=== PATIENT | female | born 1985 | race Hispanic/Latino ===

== ENCOUNTER 2021-06-11 10:33 | Outpatient (CLI) | payer BC, SELFPAY ==
[2021-06-11 10:52] LABS: Hematocrit 34.6 % (37.0-47.0); Mean Corpuscular HGB Conc 34.7 g/dl (32-36); Mean Corpuscular Volume 95.1 fl (80-100); Mean Platelet Volume 9.9 fl (7.4-10.4); Platelet Count Result 217 k/mm3 (150-375); Red Blood Count 3.64 M/mm3 (4.2-5.4); Red Cell Distribution Width 13.3 % (11.5-14.5); White Blood Count 7.2 K/mm3 (4.5-10.0)
[2021-06-13 07:40] LABS: Rapid Plasma Reagin Non-Reactive (NonReactive)
== END 2021-06-11 10:34 | disposition home or self-care (01) ==
PROVIDERS: PCP Emergency Medicine; Visit Provider Obstetrics & Gynecology
DX: Z34.93 Encounter for supervision of normal pregnancy, unspecified, third trimester (principal); Z3A.00 Weeks of gestation of pregnancy not specified
CPT/HCPCS: 36415; 85027; 86592; 86850; 86900; 86901

== ENCOUNTER 2021-06-13 11:35 | Inpatient (IN) | payer BC, SELFPAY ==
[2021-06-13] VITALS (44 sets, daily range): BP systolic 110–131; BP diastolic 52–69; PULSE 61–86; RESP 14–18; TEMP 36.3–37.3; O2SAT 98–100; BMI 29.2
--- OUTSIDE RECORDS SUMMARY | 2021-06-13 11:38 | XMS_ITS | Encounter Summary ---
:1985 Author Reason for Visit OB visit Assessment and Plan 1. Advanced maternal age 2. Deliveries by Discussion Note: None recorded.Patient educational handouts: No information available. Plan of Care Reminders Provider Appointments Surg Post 06/22/2021 Anca Escoto here Op 9:45AM MD [facility] Lab None ? ? recorded. Referral None ? ? recorded. Procedures None ? ? recorded. Surgeries None ? ? recorded. Imaging None ? ? recorded. Medications Name Start Date ? ? folic acid ? ondansetron 4 mg disintegrating tablet ? DISSOLVE 1 TABLET IN MOUTH THREE TIMES DAILY NEEDE D ? Medications Administered None recorded. Vitals Height Weight BMI Blood Pressure 5 ft 6 in 171 lbs 27.6 kg/m2 107/68 mm[Hg] Results Lab Results None recorded. Allergies Code Code System Name Reaction Severity Onset NKDA ? ? ? Problems Name Status Onset Date Source ? Active 12/21/2020 ? Deliveries by Active ? ? Advanced Maternal Age Active ? ? Procedures
--- OUTSIDE RECORDS SUMMARY | 2021-06-13 11:38 | XMS_ITS | Encounter Summary ---
:1985 Author Reason for Visit OB visit Assessment and Plan 1. Deliveries by 2. Advanced maternal age Discussion Note: None recorded.Patient educational handouts: No [...] BMI Blood Pressure 5 ft 6 in 177 lbs 28.6 kg/m2 109/77 mm[Hg] Results Lab Results None recorded. Allergies Code Code System Name Reaction Severity Onset NKDA ? ? ? Problems Name Status Onset Date Source ? Active 12/21/2020 ? Deliveries by Active ? ? Advanced Maternal Age Active ? ? Procedures
--- OUTSIDE RECORDS SUMMARY | 2021-06-13 11:38 | XMS_ITS | Encounter Summary ---
:1985 Author Reason for Visit OB visit Assessment and Plan Assessment Note Patient is ___weeks . Discu ssed plan. 1. Advanced maternal age Discussion Note: None recorded.Patient educational handouts: No information available. Plan of Care Reminders Provider Appointments Surg Post 06/22/2021 Anca gan Op 9:45AM MD [facility] Lab None ? [...] BMI Blood Pressure 5 ft 6 in 173 lbs 27.9 kg/m2 115/72 mm[Hg] Results Lab Results None recorded. Allergies Code Code System Name Reaction Severity Onset NKDA ? ? ? Problems Name Status Onset Date Source ? Active 12/21/2020 ? Deliveries by Active ? ?
--- OUTSIDE RECORDS SUMMARY | 2021-06-13 11:38 | XMS_ITS | Encounter Summary ---
:1985 Author Organization Department [facility] Address [address] [place] [address] Support Name Relationship Address Phone UNKNOWN, UNKNOWN Unavailable Unavailable Unavailable Selected Encounter This section includes the information on record at [place] for the Encounter. Date/Time Encounter Type Encounter Description Reason Provider Source Jul 06, 2020 02:12 Outpatient Encounter GENERAL INTERNAL MEDICINE [facility] Encounter Template Text not used by [facility] Encounter Notes: All associated encounter notes This section contains the clinical notes associated to the Encounter. Date/Time Encounter Note(s) Provider Source Jul 06, 2020 02:12 PM ADMINISTRATIVE NOTE: AMANDA HOWE [facility] LOCAL TITLE: ADMINISTRATIVE [facility] STANDARD TITLE: ADMINISTRATIVE NOTE DATE OF NOTE: JUL 06, 2020@14:12 ENTRY DATE: JUL 06, 2020@14:12:54 AUTHOR: AMANDA HOWE EXP COSIGNER: URGENCY: STATUS: COMPLETED CALLED MEI PETERSON TO SCHEDULE COVID VACCINE NO ANSWER LEFT MESSAGE TO CALL [phone] IF STILL INTERESTED IN VACCINE. /isabel/ AMANDA HOWE [employer]UC[employer] S[employer] LANGUAGE INTERPRETER Signed: 07/06/2020 14:13
--- OUTSIDE RECORDS SUMMARY | 2021-06-13 11:38 | XMS_ITS ---
:1985 Author Care Team Providers Name Role Phone Unassigned Primary Care Provider Unavailable Allergies Code Code System Name Reaction Severity Status Onset NKDA ? Medications Name Status Start Date Stop Date ? ? folic acid Active ? Not available iron Active ? Not available Active ? Not available Problems No Known Problems Procedures Date Name Performed by ? ? Section Information not avai lable ? Section Information not avai lable Results Lab Results None recorded. Past Encounters None recorded. Social History Tobacco Smoking Status Never Smoker Vaccine List Vaccine Type COVID-19, mRNA, LNP-S, PF, 30 mcg/0.3 mL dose ([employer]) 07/12/2020?0.3 mL 08/03/2020?0.3 mL influenza, injectable, quadrivalent 04/16/2018 Tdap 04/16/2018?0.5 mL Plan of Care Reminders Provider Appointments None ? ? recorded. Lab None ? ? recorded. Referral None ? ? recorded. Procedures None ? ?
--- OUTSIDE RECORDS SUMMARY | 2021-06-13 11:38 | XMS_ITS | Encounter Summary ---
[...] ft 6 in 177 lbs 28.6 kg/m2 113/70 mm[Hg] Results Lab Results None recorded. Allergies Code Code System Name Reaction Severity Onset NKDA ? ? ? Problems Name Status Onset Date Source ? Active 12/21/2020 ? Deliveries by Active ? ? Advanced Maternal Age Active ? ? Procedures
--- OUTSIDE RECORDS SUMMARY | 2021-06-13 11:38 | XMS_ITS | Encounter Summary ---
:1985 Author Reason for Visit OB visit Assessment and Plan 1. Deliveries by ? section (SURG) 2. Advanced maternal age 3. Sterilization requested ? salpingectomy (SURG) Discussion Note: None recorded.Patient educational handouts: No information available. Plan of Care Reminders Provider Appointments Surg Post Op Am y Ping 06/22/2021 MD [facility] 9:45AM Lab None recorded. ? ? Referral None recorded. ? ? Procedures None recorded. ? ? Surgeries Section Bill Surgery (SURG) 04/27/2021 [facility] ? Salpingectomy And erson Surgery (SURG) 04/27/2021 [facility] Imaging None recorded. ? ? Medications Name Start Date ? ? folic acid ? ondansetron 4 mg disintegrating tablet ? DISSOLVE 1 TABLET IN MOUTH THREE TIMES DAILY NEEDE D ? Medications Administered None recorded. Vitals Height Weight BMI Blood Pressure 5 ft 6 in 174 lbs 28.1 kg/m2 110/67 mm[Hg] Results Lab Results None record
--- OUTSIDE RECORDS SUMMARY | 2021-06-13 11:38 | XMS_ITS | Continuity of Care Document ---
:1985 Author Organization [facility] Care Team Providers Name Role Phone [facility] Unavailable Unavailable Encounters Combined list of: 1) Encounters from [facility] of [facility] Affairs facilities going back up to thelast 18 months, not all [facility] inpatient encounters are included; 2) Encounters from the Department of Defense facilities going backup to 280 months. Location Location Encounter Encounter Reason Attending ADM DC Stat us Disposition Source Details Type Number For Provider Date Date Visit Outpatient [id number] 07/06 [facility] Encounter [id number] [facility] Owens
--- OUTSIDE RECORDS SUMMARY | 2021-06-13 11:38 | XMS_ITS | Encounter Summary ---
:1985 Author Reason for Visit OB visit Assessment and Plan 1. Routine care 2. Deliveries by 3. Advanced maternal age Discussion Note: None recorded.Patient [...] BMI Blood Pressure 5 ft 6 in 181 lbs 29.2 kg/m2 116/72 mm[Hg] Results Lab Results None recorded. Allergies Code Code System Name Reaction Severity Onset NKDA ? ? ? Problems Name Status Onset Date Source ? Active 12/21/2020 ? Deliveries by Active ? ? Advanced M
--- OUTSIDE RECORDS SUMMARY | 2021-06-13 11:38 | XMS_ITS | Encounter Summary ---
:1985 Author Reason for Visit None recorded. Assessment and Plan 1. Advanced maternal age ? US, obstetric, follow-up Discussion Note: None recorded.Patient educational handouts: No information available. Plan of Care Reminders Provider Appointments Surg Post 06/22/2021 [place] 9:45AM Lab None ? ? recorded. Referral None ? ? recorded. Procedures None ? ? recorded. Surgeries None ? ? recorded. Imaging US, 04/06/2021 [place] [facility], Follow-up Medications Name Start Date ? ? folic acid ? ondansetron 4 mg disintegrating tablet ? DISSOLVE 1 TABLET IN MOUTH THREE TIMES DAILY NEEDE D ? Medications Administered None recorded. Vitals None recorded. Results Lab Results None recorded. Allergies Code Code System Name Reaction Severity Onset NKDA ? ? ? Problems Name Status Onset Date Source ? Active 12/21/2020 ? Deliveries by Active ? ? Advanced Maternal Age Active ? ? Procedures Date Name Performed by ?
--- NOTE | 2021-06-13 11:54 | LDADM ---
This patient, Erica Ragland, was admitted to Labor/Delivery/Recovery 120 on 06/13/21 at 11:35. Plans for labor, pain management and were discussed with patient. Patient/family oriented to hospital policies and general routines including ID bracelet, bed and alarms, visiting hours, pain management, procedures, bathroom and other care routines, personal items, smoking policy, room service/diet and guest tray routines, infant security routines, and visiting hours. Patient/Family are encouraged to report perceived risks to care and to ask questions if they do not understand what they are told or what they should do. See OBIX for further documentation.
[2021-06-13] MEDS: LACTATED RINGERS 1,000 ML 125 ML IV CONT ×2 (12:15→13:35)
--- NOTE | 2021-06-13 13:08 | WPDANESEPPF ---
Anes - Initial Pre Proc Eval Procedure: Operation Date: 06/13/21 13:30 Proposed Procedures p Repeat Section- Anca Castle MD Date/Time: 06/13/21 13:08 Surgeon: Anca Castle MD Pre Op Diagnosis: Repeat C Section Patient Data Age: 36 Gender: F Height: 1.68 m Weight: 82 kg Last Vital Signs Temp 36.7 C 06/13/21 12:19 Pulse 78 06/13/21 12:18 Resp 16 06/13/21 12:19 BP 110/62 06/13/21 12:18 Allergies Allergy/AdvReac Type Severity Reaction Status Date / Time No Known Allergies Allergy Unverified 10/29/19 13:28 Home Medications Medication Instructions Recorded Confirmed Type PNV cmb#95-ferrous fumarate-FA 1 tablet PO DAILY 05/30/21 05/30/21 History [] Patient hx anesthesia problems: none Family hx anesthesia problems: none Results Review: All pre-operative results and documents have been reviewed as part of the pre-operative evaluation. [facility] Past Medical History Medical History Screening cholesterol level Family History Family History (Updated 05/30/21 @ 15:50 by Chon Rojo RN) Father Parkinson disease Mother Diabetes mellitus Mother Hepatitis C Social History Social History Smoking status: Never smoker Alcohol intake: never Substance use: never Spiritual care concerns: No Anes - Eval Final PreProcedure Day of Procedure 06/13/21 13:08 Patient weight: overweight Heart: regular rate and rhythm Lungs: clear to auscultation and normal air movement Airway: Mallampati scale class II Neurological: alert and oriented Last oral intake: >/= 8 hours ASA classification: II Emergent: no Anesthetic plan: proceed Anesthesia type and monitoring: regional spinal and standard monitoring Results Review: All pre-operative results and documents have been reviewed as part of the pre-operative evaluation. Informed Consent: The patient's anesthetic plan and its attendant risks and benefits were discussed with the patient/family/POA. Questions were solicited and answers provided to the satisfaction of the patient/family/POA.
--- NOTE | 2021-06-13 13:27 | PM.IMHP ---
H&P: HPI History of Present Illness Date/Time: 06/13/21 13:27 Chief Complaint: previous CS, 39w IUP Narrative: Erica is a 36yo at 39.1 for repeat CS. 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 3 prior CS, last op report did not indicate significant scarring. also complicated by COVID in 2nd trimester, has taken ASA and had growth US. Also is AMA, declined NIPT. Review of Systems Review of Systems: All systems reviewed & are unremarkable except as noted in HPI and below PMFSH Past Medical History Medical History Screening cholesterol level Family History Family History (Updated 05/30/21 @ 15:50 by Chon Rojo RN) Father Parkinson disease Mother Diabetes mellitus Mother Hepatitis C Social History Social History Smoking status: Never smoker Alcohol intake: never Substance use: never Spiritual care concerns: No Meds Home Medications and Allergies Home Medications Medication Instructions Recorded Confirmed Type PNV cmb#95-ferrous fumarate-FA 1 tablet PO DAILY 05/30/21 05/30/21 History [] Allergies Allergy/AdvReac Type Severity Reaction Status Date / Time No Known Allergies Allergy Unverified 10/29/19 13:28 Vital Signs Vital Signs - 24 hr 06/13/21 12:18 06/13/21 12:19 Temperature 98.0 F Pulse Rate 78 Respiratory Rate 16 Blood Pressure 110/62 Exam Const: General: no acute distress Resp: Effort & Inspection: normal respiratory effort Auscultation: clear to auscultation bilaterally Cardio: Rate: regular rate Rhythm: regular rhythm GI: GI Palp: Yes Soft to palpation Extrem: General: normal to inspection Assessment and Plan Assessment and plan (1) History of delivery, currently : Code(s): O34.219 - Maternal care for unspecified type scar from previous delivery Status: Acute Additional Plan Plan Repeat CS Discussed RBA, pt consented, all questions answered. had considered salpingectomy but declines. aware of risks of higher order CS. will proceed.
--- NOTE | 2021-06-13 13:30 | WPDHPUPDATE1 ---
History and Physical Update Update Date/Time: 06/13/21 13:30 History and Physical has been reviewed, including an updated exam of the patient. There are NO changes in the patient's condition. Risks, benefits, and alternatives have been discussed and questions answered. Patient agrees to proceed with procedure.
[2021-06-13] MEDS: ceFAZolin 2 GM/D5W 50 ML 2 GM/50 ML BAG IVPB (13:35)
[2021-06-13] MEDS: KETOROLAC 30 MG/ML VIAL (*BKC) IV PUSH ×2 (14:24→20:41)
--- NOTE | 2021-06-13 14:49 | PM.OBPRVD ---
OB - Delivery Note Procedure Delivery date: 06/13/21 Procedure: Procedures Operation Date: 06/13/21 13:30 <No data on this case meets the specified criteria> Repeat Low Transverse section Route of delivery: Specimen: Yes (placenta) Quantitative Blood Loss (ml): 425 Anesthesia type: Spinal Disposition: Floor Complications: none Narrative: The patient was taken to the OR and received spinal anesthesia. She was placed in dorsal supine position with left lateral tilt. SCDs and simmons were placed. She was prepped and draped in the normal sterile fashion. A Pfannensteil skin incision was made and carried through to the underlying layer of fascia. The fascia was incised in the midline and then extended laterally using Gambino scissors. The muscles were in the midline and the peritoneum was entered bluntly. The peritoneal incision was extended inferiorly and superiorly with care to avoid the bladder. The bladder blade was then inserted, the vesicouterine peritoneum was grasped, incised with Metzenbaum scissors, and a bladder flap created. The bladder blade was reinserted. A low transverse uterine incision was made with a scalpel and extended bluntly. AROM was performed and fluid was noted to be clear. The head was delivered, followed by the remainder of the baby. The baby's oropharynx was suctioned. After 30 seconds, the cord was clamped and cut and the was handed off. Cord blood was obtained and the placenta was then removed manually. The uterus was exteriorized. A moist lap sponge was used to curette the endometrium. The uterine incision was then closed with one layer of 0-Vicryl in a running, locking fashion. Good hemostasis was noted. The posterior cul de sac was irrigated with normal saline and cleared of all clot and debris. The uterus was returned to the abdomen. Both lateral gutters were then irrigated. The rectus muscles were inspected and found to be hemostatic. The fascia was reapproximated using 0-Vicryl in running fashion. The subcutaneous tissue was irrigated with normal saline and made hemostatic with Bovie electrocautery. The skin was then closed with absorbable kyler. Steri strips and a bandage were applied. The uterus was evacuated. The patient tolerated the procedure very well. All counts were correct. She was taken to the recovery room in good condition. Baby Date of : 06/13/21 Time of : 14:08 Weeks of gestation at delivery: 39 gender: Male Weight (pounds): 7 Weight (ounces): 7 presentation: vertex Placenta delivery description: Manual Removal Cord Vessel Description: 3 Vessels and Delayed Cord Clamping score one minute: 9 score five minutes: 9
[2021-06-13] MEDS: OXYTOCIN 30 UNITS/NS 500 ML 30 UNITS/500 ML BAG 125 UNITS IV CONT (15:36)
--- NOTE | 2021-06-13 17:10 | PC.NURSE ---
Patient transferred to post room #288 per stretcher at 1707. Support person present. Oriented to unit, room, information board, rooming in, admission packet and security measures. Patient verbalizes understanding.
[2021-06-13] MEDS: HYDROcodone/acetaminophen (*CRX) 5-325 MG TABLET 1 TAB PO (18:05)
[2021-06-13] MEDS: KCL 20 MEQ/D5/0.45% SOD CHL 1,000 ML 125 ML IV CONT (20:41)
--- NOTE | 2021-06-14 01:40 | PC.NURSE ---
All charting done on this patient from 1909 on 06/13 until this point was charted under Tonie Vera but was actually documented by Funmi Sutton
[2021-06-14] MEDS: HYDROcodone/acetaminophen (*CRX) 5-325 MG TABLET 1 TAB PO ×4 (04:39→20:47)
[2021-06-14 04:50] VITALS: BP 109/62; PULSE 73; RESP 16; TEMP 36.8; O2SAT 98
[2021-06-14 05:07] LABS: Basophils Absolute Auto 0.1 K/mm3 (0.0-0.1); Basophils Percent Auto 0.4 % (0.2-1.2); Eosinophils Absolute Auto 0.2 K/mm3 (0-0.3); Eosinophils Percent Auto 1.5 % (0-4.4); Hematocrit 34.6 % (37.0-47.0); Hemoglobin 11.1 g/dL (12.0-15.0); Immature Granulocyte Absolute 0.11 K/mm3 (0.00-0.031); Immature Granulocyte Percent A 0.9 % (0-0.5); Lymphocytes Absolute Auto 1.98 K/mm3 (0.9-3.2); Lymphocytes Percent Auto 16.8 % (18.3-44.2); Mean Corpuscular HGB Conc 32.1 g/dl (32-36); Mean Corpuscular Hemoglobin 33.2 pg (26-34); Mean Corpuscular Volume 103.6 fl (80-100); Mean Platelet Volume 10.4 fl (7.4-10.4); Monocytes Percent Auto 8.2 % (2.6-8.5); Neutrophils Absolute Auto 8.5 K/mm3 (1.3-6.7); Neutrophils Percent Auto 72.2 % (45.5-73.1); Platelet Count Result 218 k/mm3 (150-375); Red Blood Count 3.34 M/mm3 (4.2-5.4); Red Cell Distribution Width 13.5 % (11.5-14.5); White Blood Count 11.8 K/mm3 (4.5-10.0)
--- NOTE | 2021-06-14 06:19 | P.PNOB_ITS ---
OB - PN: Subj Subjective Date/time seen: 06/14/21 06:19 Patient comments: no complaints and pain well controlled baby status: nursing well [place] feeding status: breast and bottle feeding Narrative: POD 1 from primary CS. Doing well. Normal lochia. Eating, ambulating, simmons out. Wants DC home tomorrow. OB - PN: Obj Data Labs CBC & Chem 7: 06/14/21 04:59 Labs: Laboratory Results - last 24 hr 06/14/21 04:59 WBC 11.8 H RBC 3.34 L Hgb 11.1 L Hct 34.6 L MCV 103.6 H D MCH 33.2 MCHC 32.1 RDW 13.5 Plt Count 218 MPV 10.4 Immature Gran % (Auto) 0.9 H Neut % (Auto) 72.2 Lymph % (Auto) 16.8 L [place] % (Auto) 8.2 Eos % (Auto) 1.5 Baso % (Auto) 0.4 Lymph # (Auto) 1.98 [place] # (Auto) 1.0 H Eos # (Auto) 0.2 Baso # (Auto) 0.1 Abs Immat Gran (auto) 0.11 H Absolute Neuts (auto) 8.5 H Absolute Nucleated RBC 0.0 Nucleated RBC % 0.0 OB - PN A/P Assessment and Plan (1) delivery delivered: Code(s): O82 - Encounter for delivery without indication Status: Acute Plan day: 1 Plan: routine care Comments: Routine post op care, wants home tomorrow. Time Spent With Patient Time: Total time spent is greater than 50% in coordination of care (as documented) at patient's floor/unit and/or counseling patient: Exam Narrative: NAD abdomen soft, appropriately tender, incision CDI Extremities nontender with 1+ edema
[2021-06-14 08:00] VITALS: BP 105/55; PULSE 68; RESP 18; TEMP 37.1; O2SAT 98
[2021-06-14] MEDS: SIMETHICONE 80 MG TAB.CHEW PO ×3 (10:34→20:48)
[2021-06-14] MEDS: DOCUSATE SODIUM 100 MG CAPSULE PO ×2 (10:34→16:08)
[2021-06-14] MEDS: MULTIVIT/MIN/PREN/FOL AC/IRON TABLET 1 TAB PO (10:34)
[2021-06-14] MEDS: IBUPROFEN 600 MG TABLET PO ×2 (10:35→16:09)
[2021-06-14] MEDS: LANOLIN (LANSINOH) 7.5 GM CREAM 1 APPLIC TOPICAL (10:36)
--- NOTE | 2021-06-14 10:59 | WPDANLDPN2 ---
Anes-Prog Note L&D Date/Time: 06/14/21 10:59 Comfortable throughout: section Neuraxial method: spinal Epidural/Spinal procedure site: clean & non-tender Neuro status: Neuro function grossly intact. Cardiovascular status: normal Respiratory status: normal Airway patency: baseline Mental status: baseline Post-Op hydration status: normal Vital Signs: Last Vital Signs Temp 36.8 C 06/14/21 04:50 Pulse 73 06/14/21 04:50 Resp 16 06/14/21 04:50 BP 109/62 06/14/21 04:50 Pulse Ox 98 06/14/21 04:50 Pain score (VAS): 3/10 I/O: Intake & Output 06/13/21 06/14/21 06/14/21 23:59 07:59 15:59 Intake Total 1100 1100 Output Total 593 1950 Balance 507 -850 Post-procedural complaints: pruritis moderate, treatment effective Patient feedback: Patient satisfied with anesthetic care.
--- NOTE | 2021-06-14 11:00 | WPDANLDNPN2 ---
Anes-Prog Note L&D-Neuraxial Date/Time: 06/14/21 11:00 Neuraxial medications: intrathecal PF morphine Opiod-related complaints: pruritis moderate, treatment effective Patient feedback: Patient satisfied with post-operative pain management.
[2021-06-14 11:47] VITALS: BP 110/54; PULSE 72; RESP 18; TEMP 36.2; O2SAT 99
[2021-06-14 13:00] VITALS: BP 100/50; PULSE 70; RESP 20; TEMP 36.8
--- NOTE | 2021-06-14 13:00 | PC.NURSE ---
[id number] Preschool Lead Teacher #[id number] Eyal was utilized for introductions and consulting with patient to assess needs related to . Mother led conversation with her experience with feeding baby so far. Mother works well with her infant and has latched to the left breast with no complaint of pain or discomfort. Reviewed good handwashing when working with , breast, nipples and how to protect the nipples with a deep latch. Encouraged understanding the benefits of skin to skin, responding to feeding cues, frequencies of feeding 8-12 times in 24 hours (approximately 2-3 hours), duration of feedings, milk production, intake/output feeding sheet and signs of adequate intake. Discussed stimulating with skin to skin, hand expressing colostrum, touch and talking to to encourage eating at the breast. Reviewed positioning and alignment, supporting breast, off-centered (asymmetrical latch) and leading with the chin with big open wide gape. latched optimally to the right breast in football position. Education given to mother of how to visualize suck/swallow ratios and drinking at the breast. was able to maintain latch without discomfort to mother. Resources used to facilitate learning were used from the [place] visual handout and guide. Mother voiced understanding responding to feeding cues, may need to stimulating approximately 2-3 hours from the start of the last feeding, calling for assistance if the infant does not latch or there discomfort . Reported to primary RN.
[2021-06-14 20:33] VITALS: BP 108/61; PULSE 73; RESP 18; TEMP 36.7; O2SAT 99
[2021-06-15] MEDS: HYDROcodone/acetaminophen (*CRX) 5-325 MG TABLET 1 TAB PO ×2 (02:47→09:44)
--- NOTE | 2021-06-15 08:00 | PC.NURSE ---
PT introductions made and plan of care discussed per post op c section, pain management, breast /bottle feeding, daily care activities and pending discharge to home. PT speaks no Pakistani but her is fluent in Pakistani. PT and spouse both received instructions via one to one discussion, mom baby care guide, language line and phone language alexandr and demonstrations. barrier to learning for pt would be language. PT and spouse both verbalized understanding of such care.
--- NOTE | 2021-06-15 08:00 | PM.OBPNVD ---
OB - PN: Subj Subjective Date/time seen: 06/15/21 08:00 Patient comments: no complaints and pain well controlled baby status: doing well and nursing well [place] feeding status: exclusively breast feeding Narrative: wants DC home OB - PN: Obj Data Labs CBC & Chem 7: 06/14/21 04:59 OB - PN A/P Assessment and Plan (1) delivery delivered: Code(s): O82 - Encounter for delivery without indication Status: Acute Plan day: 2 Plan: routine care and discharge home Time Spent With Patient Time: Total time spent is greater than 50% in coordination of care (as documented) at patient's floor/unit and/or counseling patient: Exam Narrative: NAD abdomen soft, appropriately tender, incision CDI Extremities nontender with 1+ edema
--- NOTE | 2021-06-15 08:04 | PM.OBDSVD ---
DS: Admitting Diagnosis Discharge Date 06/15/21 Admitting Diagnosis term IUP, prior CSs DS: Discharge Diagnosis Discharge Diagnosis (1) delivery delivered: Code(s): O82 - Encounter for delivery without indication Status: Acute OB - DS: Summary Hospital Course Hospital Course: Erica had an uncomplicated repeat section and post operative course. OB Procedures : Ultrasound OB Procedures Intrapartum: OB Procedures: : None Peripartum Data Delivery Method: Section Procedures: Procedures Operation Date: 06/13/21 13:30 Actual Procedure Side Surgeon p Repeat Section with Bilateral Salpingectomy Anca Castle MD complications: none Time Spent with Patient Time attestation: Total time spent providing and/or coordinating discharge services: Exam Narrative: NAD abdomen soft, appropriately tender, incision CDI Discharge Plan Discharge Attending physician on discharge: Anca Castle Discharging Clinician: Anca Castle Anticipated Discharge Date/Time: 06/15/21 08:01 Patient Disposition: Home, Self-Care Activity: may drive after 2 weeks and pelvic rest Diet: regular Patient Instructions: Antibiotic Form Stand Alone Forms: General Discharge Information Follow-up/Referrals: Anca Castle MD [Physician] - 1 Week Discharge Medications: New hydrocodone-acetaminophen 5-325 mg Tablet 1 tablet PO Q4-5H PRN (Reason: Moderate Pain (4-6)) Qty: 30 RF: 0 docusate sodium 100 mg Capsule 100 mg PO BID Qty: 60 RF: 0 ibuprofen 600 mg Tablet 600 mg PO Q6H PRN (Reason: Cramping) Qty: 60 RF: 0 Continued PNV cmb#95-ferrous fumarate-FA [] 28 mg iron- 800 mcg Tablet 1 tablet PO DAILY RF: 0 Date of admission: 06/13/21 11:35 Primary Care Provider: Apolinar Camacho Admitting Provider: Anca Castle Attending physician on admission: Anca Castle Condition: Stable
[2021-06-15 08:25] VITALS: BP 112/64; PULSE 67; RESP 16; TEMP 36.3; O2SAT 100
[2021-06-15] MEDS: IBUPROFEN 600 MG TABLET PO ×2 (09:42→14:35)
[2021-06-15] MEDS: SIMETHICONE 80 MG TAB.CHEW PO ×2 (09:42→14:35)
[2021-06-15] MEDS: MULTIVIT/MIN/PREN/FOL AC/IRON TABLET 1 TAB PO (09:44)
[2021-06-15] MEDS: DOCUSATE SODIUM 100 MG CAPSULE PO (09:44)
[2021-06-15 09:45] VITALS: PULSE 67; RESP 16; O2SAT 100
--- NOTE | 2021-06-15 12:44 | PC.NURSE ---
[id number] Introductions were made with the father of the baby and mother led the conversation assisted with her for interpretation with regards to her experience feeding her baby. Reminded parents to use good handwashing to prevent infection. Infant has had appropriate feedings in the past 24 hours and meets the outcomes for weight, output and jaundice. Mother states she feels confident to continue effectively breastfeed and mother's preference of supplementing with formula until her milk is in at home. Reviewed production of human milk, transition of milk, signs of adequate intake and engorgement prevention/relief and when to call the infant care provider using Pashto handouts and guide. Reviewed medications mother is taking with information provided by [facility], community resources and outpatient services as listed in the mom and baby guide/[facility] website. Reinforced watching for feeding cues with responsive feeding and how to stimulate to initiate feeding three hours from the start of the last feeding. The parents voiced understanding of information shared. Reported to primary RN.
--- NOTE | 2021-06-15 14:00 | PC.NURSE ---
PT received discharge instructions per translation of her and would read back to her what was shared on discharge papers and pt would acknowledge understanding
[2021-06-15] MEDS: HYDROcodone/acetaminophen (*CRX) 10-325 MG TABLET 1 TAB PO (14:35)
--- NOTE | 2021-06-15 14:35 | PC.NURSE ---
PT discharged to home ambulatory accompanied by spouse and and taken to waiting car. Follow up appts confirmed
[2021-06-16 09:06] VITALS: BP 117/55; PULSE 71; RESP 20; TEMP 37.2; O2SAT 100
== END 2021-06-15 14:35 | disposition home or self-care (01) | DRG 788 ==
LOC: ANHLDR 11:44 → ANHOB2 17:09
PROVIDERS: Admitting Provider Obstetrics & Gynecology; PCP Emergency Medicine; Visit Provider Obstetrics & Gynecology
PROC: 10D00Z1 Extraction of Products of Conception, Low, Open Approach (ICD-10-PCS; CPT 59514; principal; 2021-06-13 13:30)
DX: O34.211 Maternal care for low transverse scar from previous cesarean delivery (principal); Z37.0 Single live birth; Z3A.39 39 weeks gestation of pregnancy; O99.72 Diseases of the skin and subcutaneous tissue complicating childbirth; L29.9 Pruritus, unspecified
CPT/HCPCS: 36415; 85025; A9270; J0131; J0690; J1885; J2274; J2370; J2405; J2590; J3480; J7120